=== PATIENT | female | born 2005 | race Caucasian/White ===

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

== ENCOUNTER 2025-05-22 06:56 | Day surgery (SDC) | payer BC ==
[2025-05-20 15:01] VITALS: BMI 21.1
[2025-05-22] MEDS ORDERED: PROPOFOL 0 ML ONE (07:11)
[2025-05-22] MEDS ORDERED: AFRIN NASAL MIST 15 ML BOT ONE (07:36)
[2025-05-22] MEDS ORDERED: Ferric Subsulfate 8 ML TOPICAL SOLN ONE (07:57)
[2025-05-22] MEDS ORDERED: PROPOFOL 20 ML ONE (08:00)
[2025-05-22] MEDS ORDERED: Rocuronium Bromide 10 MG/ML (10ML VIAL) ONE (08:01)
[2025-05-22 08:28] LABS: Hematocrit 35.8 % (34.9-44.5)
[2025-05-22 08:43] LABS: BHCG - Serum Negative (NEGATIVE); Pregs Control Background? CLEAR/WHITE (CLR/WHITE); Pregs Control Bar Appear? YES (CONTROL BAR)
[2025-05-22] MEDS ORDERED: Scopolamine 1 mg/72 hour Patch ONE (08:50)
[2025-05-22] MEDS ORDERED: SUGAMMADEX SODIUM 200 MG/2 ML VIAL ONE (09:27)
[2025-05-22] MEDS ORDERED: Hydrocodone-Acetamin 15 ML UDCUP ONE (10:05)
== END 2025-05-22 10:45 | disposition home or self-care (01) ==
LOC: CSHSDC 06:56
PROVIDERS: ATTEND Otolaryngology Plastic Surgery within the Head & Neck
PROC: 0CTQXZZ Resection of Adenoids, External Approach (ICD-10-PCS; principal; 2025-05-22)
PROC: 0CTPXZZ Resection of Tonsils, External Approach (ICD-10-PCS; principal; 2025-05-22)
DX: J35.01 Chronic tonsillitis (principal); J35.3 Hypertrophy of tonsils with hypertrophy of adenoids; G47.33 Obstructive sleep apnea (adult) (pediatric); F41.9 Anxiety disorder, unspecified; F32.A Depression, unspecified; Z79.899 Other long term (current) drug therapy
CPT/HCPCS: 36415; 84703; 85014; J1010; J1100; J2250; J2704